=== PATIENT | female | born 1975 | race Caucasian/White ===

== ENCOUNTER 2017-02-25 11:01 | Inpatient (IN) | payer OTHER ==
[~2017-02-25] VITALS: Ht 137.2 cm; Wt 46.7 kg
[~2017-02-25 11:01] MED LIST: AMBIEN10 MG PO; ATIVAN0.5 MG PO; AUGMENTIN500 MG PO; CLONAZEPAM1 MG PO; COPAXONE20 MG/KIT SC; CYMBALTA30 MG PO; DILANTIN100 MG PO; ESCITALOPRAM OX10 MG PO; ESTRACE1 MG PO; FLEXERIL10 MG PO; GABAPENTIN400 MG PO; GILENYA0.5 MG PO; KEPPRA500 MG PO; KLONOPIN1 MG PO; METHYLPHENIDATE10 M1 PO; NEURONTIN600 MG PO; NOHOMEMEDS; NUCYNTA ER150 MG PO; NUCYNTA50 MG PO; NUVIGIL150 MG PO; ONDANSETRON HCL4 MG PO; PREDNISONE PO; PRILOSEC20 MG PO; PRISTIQ100 MG PO; PROVENTIL,2.5 MG/0.5 AEROSOL; RESTORIL15 MG PO; RITALIN10 MG PO; RITALIN20 MG PO; TIZANIDINE HCL4 M1 PO; TIZANIDINE HCL4 MG PO; TRAZODONE HCL50 MG PO; VITAMIN D2000 INTUN PO; VITAMIN D2000 UNIT PO; VITAMIN D32000 UNIT PO; VIVELLE,ESTRAD0.1 MG TD; Vitamin D PO; ZANAFLEX4 M1 PO; ZYRTEC10 M3 PO; [UNRECOGNIZED DRUG - OTHER] SQ
[2017-02-25 13:02] LABS: ADD MIUA? YES; BILIRUBIN NEGATIVE; BLOOD SMALL; COLOR YELLOW ((YELLOW)); GLUCOSE (STRIP) NEGATIVE; KETONES NEGATIVE; LEUKOCYTES NEGATIVE; NITRITE NEGATIVE; PROTEIN (STRIP) NEGATIVE; SPECIFIC GRAVITY 1.018 (1.000-1.030); UROBILINOGEN 0.2 MG/DL (0.2-1.0)
[2017-02-25 13:13] LABS: EOSINOPHIL (%) 0 % (0-5); IMMATURE GRANULOCYTE (%) 0.8 % (0.0-0.7); IMMATURE GRANULOCYTE COUNT 0.2 K/uL; INSTRUMENT ABS NEUTROPHIL CT 16.8 K/uL; LYMPHOCYTE COUNT 1.2 K/uL (1.0-2.8); MCH 28.5 PG (29.0-34.0); MCHC 33.4 G/DL (30.0-36.0); MCV 85.4 FL (83-99); MEAN PLAT.VOLUME 10.1 uM^3 (9.5-12.4); MONOCYTE (%) 5.8 % (3-12); MONOCYTE COUNT 1.1 K/uL (0-0.8); NEUTROPHIL COUNT 16.8 K/uL (1.8-6.4); PLATELET COUNT 231 K/uL (156-360); RBC DIS.WIDTH-CV 12.9 % (11.8-14.6); RBC DIS.WIDTH-SD 39.9 % (39-53); WHITE BLOOD COUNT 19.3 K/uL (4.1-10.2)
[2017-02-25 13:21] LABS: CHLORIDE 103 mEq/L (99-109); POTASSIUM 4.1 mEq/L (3.7-5.4); SODIUM 140 mEq/L (136-147)
[2017-02-25 13:23] LABS: GLUCOSE 106 mg/dL (70-99)
[2017-02-25 13:24] LABS: ANION GAP 11 MEQ/L (2-14)
[2017-02-25 13:25] LABS: TOTAL BILIRUBIN 0.6 mg/dL (0.0-1.0)
[2017-02-25 13:26] LABS: ALKALINE PHOSPHATASE 69 IU/L (3-129)
[2017-02-25 13:27] LABS: GFR ESTIMATE (CALCULATED) > 59 mL/min/
[2017-02-25 13:28] LABS: UREA NITROGEN (BUN) 18 mg/dL (9-23)
[2017-02-25 13:30] LABS: LIPASE 18 U/L (1.0-51.0)
[2017-02-25 13:34] LABS: BACTERIA NONE SEEN /HPF; EPITHELIAL CELLS RARE /HPF; MUCUS TRACE /LPF; RED BLOOD CELLS 0-5 /HPF (0-5); UCUL ADDED? NO; WHITE BLOOD CELLS 0-5 /HPF (0-5)
[2017-02-25] MEDS ORDERED: NEURONTIN400 MG PO (16:24)
[2017-02-25] MEDS ORDERED: ZINBRYTA150 MG/1 M SC (16:25)
[2017-02-25] MEDS ORDERED: METHYLPHENIDATE20 M1 PO (16:28)
[2017-02-25] MEDS ORDERED: ZANAFLEX4 M1 PO ×2 (16:32→16:33)
[2017-02-25] MEDS ORDERED: TRAZODONE HCL50 MG PO (16:33)
[2017-02-25 17:33] VITALS: BP 156/95
[2017-02-25 19:51] VITALS: BP 132/72
[2017-02-25 23:23] VITALS: BP 122/74
[2017-02-26 04:17] VITALS: BP 112/61
[2017-02-26 05:54] LABS: ANION GAP 4 MEQ/L (2-14); CHLORIDE 111 MEQ/L (99-109); GFR ESTIMATE (CALCULATED) > 59 mL/min/; GLUCOSE 93 mg/dL (70-99); POTASSIUM 3.8 MEQ/L (3.7-5.4); SAMPLE HEMOLYSIS CHECK 0; SAMPLE ICTERIC CHECK 0; SAMPLE LIPEMIA CHECK 0; SODIUM 140 MEQ/L (136-147); UREA NITROGEN (BUN) 16 mg/dL (9-23)
[2017-02-26 06:09] LABS: EOSINOPHIL (%) 0 % (0-5); IMMATURE GRANULOCYTE (%) 0.5 % (0.0-0.7); IMMATURE GRANULOCYTE COUNT 0.1 K/uL; INSTRUMENT ABS NEUTROPHIL CT 7.4 K/uL; LYMPHOCYTE COUNT 2.7 K/uL (1.0-2.8); MCH 29.6 PG (29.0-34.0); MCHC 33.8 G/DL (30.0-36.0); MCV 87.6 FL (83-99); MONOCYTE (%) 5.5 % (3-12); MONOCYTE COUNT 0.6 K/uL (0-0.8); NEUTROPHIL (%) 68.8 % (45-76); NEUTROPHIL COUNT 7.4 K/uL (1.8-6.4); RBC DIS.WIDTH-CV 13.3 % (11.8-14.6); RBC DIS.WIDTH-SD 42.1 % (39-53); RED BLOOD COUNT 3.88 M/uL (3.80-5.20); WHITE BLOOD COUNT 10.8 K/uL (4.1-10.2)
[2017-02-26 06:52] LABS: MEAN PLAT.VOLUME 10.4 uM^3 (9.5-12.4); PLAT.SUFFICIENCY ADEQUATE
[2017-02-26 06:59] LABS: PLATELET COUNT 153 K/uL (156-360)
[2017-02-26 07:10] VITALS: BP 125/71
[2017-02-26 14:02] VITALS: BP 138/97
[2017-02-27 00:01] VITALS: BP 76/48
[2017-02-27 04:22] VITALS: BP 103/70
[2017-02-27 07:07] LABS: EOSINOPHIL (%) 0.7 % (0-5); EOSINOPHIL COUNT 0.1 K/uL (0-0.3); HEMATOCRIT 40.6 % (36.0-46.0); IMMATURE GRANULOCYTE (%) 0.5 % (0.0-0.7); INSTRUMENT ABS NEUTROPHIL CT 3.9 K/uL; LYMPHOCYTE COUNT 3.5 K/uL (1.0-2.8); MCH 28.5 PG (29.0-34.0); MCV 86.2 FL (83-99); MEAN PLAT.VOLUME 10.1 uM^3 (9.5-12.4); MONOCYTE (%) 6.5 % (3-12); MONOCYTE COUNT 0.5 K/uL (0-0.8); NEUTROPHIL (%) 48.4 % (45-76); NEUTROPHIL COUNT 3.9 K/uL (1.8-6.4); PLATELET COUNT 193 K/uL (156-360); RBC DIS.WIDTH-CV 13.2 % (11.8-14.6); RBC DIS.WIDTH-SD 41.1 % (39-53)
[2017-02-27 07:12] LABS: RED BLOOD COUNT 4.71 M/uL (3.80-5.20)
[2017-02-27 07:32] LABS: ALKALINE PHOSPHATASE 54 IU/L (3-129); ANION GAP 8 MEQ/L (2-14); CHLORIDE 107 MEQ/L (99-109); GFR ESTIMATE (CALCULATED) > 59 mL/min/; GLUCOSE 106 mg/dL (70-99); POTASSIUM 3.4 MEQ/L (3.7-5.4); SAMPLE HEMOLYSIS CHECK 0; SAMPLE ICTERIC CHECK 0; SAMPLE LIPEMIA CHECK 0; SODIUM 144 MEQ/L (136-147); TOTAL BILIRUBIN 0.7 MG/DL (0.0-1.0); UREA NITROGEN (BUN) 13 mg/dL (9-23)
[2017-02-27 08:17] VITALS: BP 98/55
[2017-02-27 11:38] VITALS: BP 101/60
[2017-02-27 16:11] VITALS: BP 115/81
[2017-02-27 20:00] VITALS: BP 103/66
[2017-02-28 00:32] VITALS: BP 99/64
[2017-02-28 04:25] VITALS: BP 97/55
[2017-02-28 05:46] LABS: EOSINOPHIL (%) 2.9 % (0-5); EOSINOPHIL COUNT 0.2 K/uL (0-0.3); HEMATOCRIT 35.6 % (36.0-46.0); IMMATURE GRANULOCYTE (%) 0.5 % (0.0-0.7); INSTRUMENT ABS NEUTROPHIL CT 3.1 K/uL; LYMPHOCYTE COUNT 2.7 K/uL (1.0-2.8); MCH 29.1 PG (29.0-34.0); MCHC 33.4 G/DL (30.0-36.0); MEAN PLAT.VOLUME 10.1 uM^3 (9.5-12.4); MONOCYTE (%) 6.3 % (3-12); MONOCYTE COUNT 0.4 K/uL (0-0.8); NEUTROPHIL (%) 47.9 % (45-76); NEUTROPHIL COUNT 3.1 K/uL (1.8-6.4); PLATELET COUNT 179 K/uL (156-360); RBC DIS.WIDTH-SD 40.7 % (39-53); RED BLOOD COUNT 4.09 M/uL (3.80-5.20); WHITE BLOOD COUNT 6.5 K/uL (4.1-10.2)
[2017-02-28 06:09] LABS: ALKALINE PHOSPHATASE 57 IU/L (3-129); ANION GAP 6 MEQ/L (2-14); CHLORIDE 106 MEQ/L (99-109); DIRECT BILIRUBIN 0.1 mg/dL (0.0-0.3); GFR ESTIMATE (CALCULATED) > 59 mL/min/; GLUCOSE 95 mg/dL (70-99); POTASSIUM 3.8 MEQ/L (3.7-5.4); SAMPLE HEMOLYSIS CHECK 0; SAMPLE ICTERIC CHECK 0; SAMPLE LIPEMIA CHECK 0; SODIUM 142 MEQ/L (136-147); UREA NITROGEN (BUN) 12 mg/dL (9-23)
[2017-02-28 06:13] LABS: C-REACTIVE PROTEIN < 1.0 MG/L (0-10); TOTAL BILIRUBIN 0.4 MG/DL (0.0-1.0)
[2017-02-28 06:52] LABS: ERTH.SED.RATE 1 MM/HR (0-20)
[2017-02-28 08:05] VITALS: BP 105/63
[2017-02-28 12:20] VITALS: BP 112/75
[2017-02-28 19:16] VITALS: BP 95/55
[2017-03-01 00:55] VITALS: BP 110/73
[2017-03-01 04:13] VITALS: BP 115/87
[2017-03-01 05:54] LABS: EOSINOPHIL (%) 3.3 % (0-5); EOSINOPHIL COUNT 0.2 K/uL (0-0.3); HEMATOCRIT 37.7 % (36.0-46.0); IMMATURE GRANULOCYTE (%) 0.5 % (0.0-0.7); INSTRUMENT ABS NEUTROPHIL CT 3.6 K/uL; MCH 29.7 PG (29.0-34.0); MCHC 34.2 G/DL (30.0-36.0); MCV 86.7 FL (83-99); MEAN PLAT.VOLUME 9.7 uM^3 (9.5-12.4); MONOCYTE (%) 6.7 % (3-12); MONOCYTE COUNT 0.4 K/uL (0-0.8); NEUTROPHIL COUNT 3.6 K/uL (1.8-6.4); PLATELET COUNT 175 K/uL (156-360); RBC DIS.WIDTH-CV 12.9 % (11.8-14.6); RBC DIS.WIDTH-SD 40.6 % (39-53); RED BLOOD COUNT 4.35 M/uL (3.80-5.20); WHITE BLOOD COUNT 6.3 K/uL (4.1-10.2)
[2017-03-01 06:29] LABS: ANION GAP 5 MEQ/L (2-14); CHLORIDE 104 MEQ/L (99-109); GFR ESTIMATE (CALCULATED) > 59 mL/min/; GLUCOSE 91 mg/dL (70-99); SAMPLE HEMOLYSIS CHECK 0; SAMPLE ICTERIC CHECK 0; SAMPLE LIPEMIA CHECK 0; SODIUM 144 MEQ/L (136-147); UREA NITROGEN (BUN) 8 mg/dL (9-23)
[2017-03-01 06:40] LABS: ALKALINE PHOSPHATASE 87 IU/L (3-129); POTASSIUM 4.6 MEQ/L (3.7-5.4); TOTAL BILIRUBIN 0.7 MG/DL (0.0-1.0)
[2017-03-01] MEDS ORDERED: CIPRO500 MG PO (08:15)
[2017-03-01 10:20] VITALS: BP 134/83
[2017-03-01 11:17] VITALS: BP 134/78
[2017-03-01 16:30] VITALS: BP 91/55
[2017-03-01 20:37] VITALS: BP 95/61
[2017-03-02 00:30] VITALS: BP 90/52
[2017-03-02 03:00] VITALS: BP 84/50
[2017-03-02 03:42] VITALS: BP 92/54
[2017-03-02 05:41] VITALS: BP 100/58
[2017-03-02 07:22] VITALS: BP 100/53
== END 2017-03-02 10:03 | disposition home or self-care (01) | DRG 392 ==
LOC: EME 11:01 → EDOF 16:33 → ENRESERV 16:37 → 5WEST 17:20 → ENRESERV 02-26 15:48 → CANRESERV 02-26 15:48 → ENRESERV 02-26 16:03 → ENPENDDIS 03-01 → 5WEST 03-02 10:03
PROVIDERS: Emergency Medicine; Internal Medicine; Nurse Practitioner Adult Health; Physician Assistant; Specialist
DX: K58.1 Irritable bowel syndrome with constipation (principal); K29.60 Other gastritis without bleeding; G35 Multiple sclerosis; R56.9 Unspecified convulsions; F32.9 Major depressive disorder, single episode, unspecified; F41.9 Anxiety disorder, unspecified; G43.909 Migraine, unspecified, not intractable, without status migrainosus; K21.9 Gastro-esophageal reflux disease without esophagitis; K76.89 Other specified diseases of liver; R33.9 Retention of urine, unspecified; D12.4 Benign neoplasm of descending colon; D12.3 Benign neoplasm of transverse colon
CPT/HCPCS: 71010; 74176; 74177; 80048; 80053; 80069; 80076; 81003; 83605; 83690; 85025; 85651; 86140; 87040; 88305; 88342 TC; 96365; 96366; 99281; 99285; C9113; G0378; J0744; J1885; J2250; J2270; J2405; J2765; J2930; J7030; J7040; S0030

== ENCOUNTER 2018-02-12 16:40 | Inpatient (IN) | payer OTHER ==
[~2018-02-12] VITALS: Ht 137.2 cm; Wt 47.8 kg
[~2018-02-12 16:40] MED LIST changes: +CIPRO500 MG PO; +METHYLPHENIDATE20 M1 PO; +NEURONTIN400 MG PO; +ZINBRYTA150 MG/1 M SC
[2018-02-12 17:38] LABS: HEMATOCRIT 37.2 % (36.0-46.0); HEMOGLOBIN 12.8 G/DL (11.9-15.5); MCH 29.5 PG (29.0-34.0); MCHC 34.4 G/DL (30.0-36.0); MCV 85.7 FL (83-99); PLATELET COUNT 186 K/uL (156-360); RBC DIS.WIDTH-CV 12.6 % (11.8-14.6); RBC DIS.WIDTH-SD 38.7 % (39-53); RED BLOOD COUNT 4.34 M/uL (3.80-5.20); WHITE BLOOD COUNT 6.5 K/uL (4.1-10.2)
[2018-02-12 17:50] LABS: CHLORIDE 105 mEq/L (99-109); POTASSIUM 3.6 mEq/L (3.7-5.4); SODIUM 142 mEq/L (136-147)
[2018-02-12 17:51] LABS: GLUCOSE 83 mg/dL (70-99)
[2018-02-12 17:55] LABS: CREATININE 0.8 mg/dL (0.6-1.3); GFR ESTIMATE (CALCULATED) > 59 mL/min/
[2018-02-12 17:56] LABS: UREA NITROGEN (BUN) 12 mg/dL (9-23)
[2018-02-12] MEDS ORDERED: CLONAZEPAM0.5 MG PO (18:40)
[2018-02-12] MEDS ORDERED: KLONOPIN0.5 M1 PO (18:43)
[2018-02-12] MEDS ORDERED: GABAPENTIN600 MG PO (18:43)
[2018-02-12] MEDS ORDERED: ESCITALOPRAM OX10 MG PO (18:44)
[2018-02-12] MEDS ORDERED: ZOLPIDEM TARTRA10 MG PO (18:44)
[2018-02-12] MEDS ORDERED: CYCLOBENZAPRINE10 MG PO (18:44)
[2018-02-12] MEDS ORDERED: MIGRAINE MED PO (18:54)
[2018-02-12 19:28] LABS: APPEARANCE CLEAR ((CLEAR)); BILIRUBIN NEGATIVE; BLOOD NEGATIVE; COLOR YELLOW ((YELLOW)); GLUCOSE (STRIP) NEGATIVE; KETONES NEGATIVE; LEUKOCYTES SMALL; NITRITE NEGATIVE; PROTEIN (STRIP) NEGATIVE; SPECIFIC GRAVITY 1.018 (1.000-1.030); UROBILINOGEN 0.2 MG/DL (0.2-1.0)
[2018-02-12 19:39] LABS: BACTERIA NONE SEEN /HPF; EPITHELIAL CELLS 1+ /HPF; HYALINE CASTS 0-5 /LPF; MUCUS 1+ /LPF; RED BLOOD CELLS 0-5 /HPF (0-5); UCUL ADDED? YES
[2018-02-12 20:52] LABS: ALBUMIN 4.3 g/dL (3.2-4.8)
[2018-02-12 20:56] LABS: TOTAL BILIRUBIN 0.9 mg/dL (0.0-1.0)
[2018-02-12 20:57] LABS: ALKALINE PHOSPHATASE 84 IU/L (3-129)
[2018-02-12 21:00] LABS: AST (GOT) 44 IU/L (2-34); DIRECT BILIRUBIN 0.3 mg/dL (0.0-0.3)
[2018-02-12 21:01] LABS: ALT (GPT) 55 IU/L (3-49)
[2018-02-12 23:00] VITALS: BP 137/88
[2018-02-13 03:42] VITALS: BP 111/78; BP 142/91
[2018-02-13 06:34] LABS: HEMATOCRIT 39.8 % (36.0-46.0); MCH 29.1 PG (29.0-34.0); MCHC 35.2 G/DL (30.0-36.0); MCV 82.7 FL (83-99); RBC DIS.WIDTH-CV 12.3 % (11.8-14.6); RBC DIS.WIDTH-SD 36.6 % (39-53); RED BLOOD COUNT 4.81 M/uL (3.80-5.20); WHITE BLOOD COUNT 5.6 K/uL (4.1-10.2)
[2018-02-13 06:36] LABS: PLATELET COUNT 249 K/uL (156-360)
[2018-02-13 07:06] LABS: CHLORIDE 105 MEQ/L (99-109); CREATININE 0.7 MG/DL (0.6-1.3); GFR ESTIMATE (CALCULATED) > 59 mL/min/; SODIUM 139 MEQ/L (136-147); UREA NITROGEN (BUN) 13 mg/dL (9-23)
[2018-02-13 07:18] LABS: GLUCOSE 184 mg/dL (70-99); POTASSIUM 4.4 MEQ/L (3.7-5.4)
[2018-02-13 07:27] VITALS: BP 135/91
[2018-02-13 11:22] VITALS: BP 127/86
[2018-02-13] MEDS ORDERED: MAXALT10 MG PO (11:53)
[2018-02-13 15:54] VITALS: BP 108/72
[2018-02-13 19:00] VITALS: BP 138/92
[2018-02-13 21:24] VITALS: BP 141/80
[2018-02-14 03:50] VITALS: BP 107/73
[2018-02-14 07:38] VITALS: BP 107/56
[2018-02-14 11:33] VITALS: BP 130/97
[2018-02-14 16:00] VITALS: BP 110/60
[2018-02-14 23:42] VITALS: BP 140/83
[2018-02-15 07:48] VITALS: BP 117/70
[2018-02-15] MEDS ORDERED: CEFTIN500 MG PO (10:28)
== END 2018-02-15 16:24 | disposition home health service (06) | DRG 59 ==
LOC: EME 16:40 → EDOF 20:00 → 2EAST 20:00 → CANRESERV 20:03 → ENRESERV 20:03 → CANRESERV 20:09 → ENRESERV 20:09 → CANRESERV 20:20 → ENRESERV 20:53 → 2EAST 22:58
PROVIDERS: Emergency Medicine; Internal Medicine
DX: G35 Multiple sclerosis (principal); N39.0 Urinary tract infection, site not specified; E87.6 Hypokalemia; Q45.3 Other congenital malformations of pancreas and pancreatic duct; K76.89 Other specified diseases of liver; K75.81 Nonalcoholic steatohepatitis (NASH); R74.8 Abnormal levels of other serum enzymes; M51.26 Other intervertebral disc displacement, lumbar region; M51.27 Other intervertebral disc displacement, lumbosacral region; R29.6 Repeated falls; R33.9 Retention of urine, unspecified; K52.81 Eosinophilic gastritis or gastroenteritis; K21.9 Gastro-esophageal reflux disease without esophagitis; G43.909 Migraine, unspecified, not intractable, without status migrainosus; R19.7 Diarrhea, unspecified; F32.9 Major depressive disorder, single episode, unspecified; F41.9 Anxiety disorder, unspecified
CPT/HCPCS: 70553; 71045; 72148; 80048; 80076; 81003; 85027; 87040; 87086; 92523 GN; 99281; 99285; J0696; J1644; J1885; J2930; J7030; J7050